=== PATIENT | female | born 1980 | race Caucasian/White ===

== ENCOUNTER 2017-04-25 18:36 | Emergency (ER) | payer SELFPAY ==
[2017-04-25] MEDS ORDERED: HYDROcodone-APAP 10 MG-325 MG TABLET PO PRN (19:33)
--- NOTE | 2017-04-25 20:04 | DI ---
XR HAND MIN 3VW,04/25/2017 6:58 PM: Clinical History: Oblique phalangeal fractures. Previous Exam: None at this facility. Findings: 3 views of the left hand are obtained, and demonstrate oblique fractures through the left fifth proxi mal phalanx and the left fourth middle phalanx. There is some soft tissue swelling noted as well. Impression: Oblique fractures through the left fifth proximal phalanx and the left fourth middle phalanx.
[2017-04-25 21:11] VITALS: RESP 18; TEMP 98.1
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
== END 2017-04-25 20:01 | disposition home or self-care (01) ==
LOC: ER 18:36
DX: S62.625A Displaced fracture of middle phalanx of left ring finger, initial encounter for closed fracture (principal); S62.617A Displaced fracture of proximal phalanx of left little finger, initial encounter for closed fracture; W23.0XXA Caught, crushed, jammed, or pinched between moving objects, initial encounter
CPT/HCPCS: 29125; 73130; 99282